=== PATIENT | male | born 1990 | race Two or more races ===

== ENCOUNTER 2017-11-29 10:20 | Emergency (ER) | payer MEDICAID, OTHER ==
[~2017-11-29] VITALS: Ht 188 cm; Wt 81.6 kg
[~2017-11-29 10:20] MED LIST: METH20TA PO
[2017-11-29 12:19] VITALS: BP 110/80
[2017-11-29] MEDS ORDERED: HYDROcodone-ACET 10/325MG TAB PO ONE (12:45)
[2017-11-29] MEDS ORDERED: KETOROLAC TROMETH 60MG/2ML VIAL IM ONE (12:45)
== END 2017-11-29 14:13 | disposition home or self-care (01) ==
LOC: ER 10:20
DX: S82.121A Displaced fracture of lateral condyle of right tibia, initial encounter for closed fracture (principal); W14.XXXA Fall from tree, initial encounter; Y93.89 Activity, other specified; Y92.89 Other specified places as the place of occurrence of the external cause; Y99.8 Other external cause status
CPT/HCPCS: 29505; 73562; 96372; 99284; J1885

== ENCOUNTER 2021-05-28 22:36 | Emergency (ER) | payer MEDICAID ==
[~2021-05-28] VITALS: Ht 188 cm; Wt 81.6 kg
[2021-05-29 00:42] VITALS: BP 129/88
== END 2021-05-29 01:25 | disposition home or self-care (01) ==
LOC: ER 22:37
DX: S41.112A Laceration without foreign body of left upper arm, initial encounter (principal); Z79.899 Other long term (current) drug therapy; W26.0XXA Contact with knife, initial encounter; Y93.89 Activity, other specified; Y92.89 Other specified places as the place of occurrence of the external cause; Y99.8 Other external cause status